=== PATIENT | female | born 1985 | race Two or more races ===

== ENCOUNTER → 2024-08-01 | Outpatient (CLI) | payer MEDICAID, SELFPAY ==
--- NOTE | 2024-08-01 14:30 | XR_ITS ---
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
== END | disposition home or self-care (01) ==
PROVIDERS: PCP Nurse Practitioner Family; Referring Provider Nurse Practitioner Family; Visit Provider Nurse Practitioner Family
DX: N85.9 Noninflammatory disorder of uterus, unspecified (principal); R10.9 Unspecified abdominal pain
CPT/HCPCS: 76830

== ENCOUNTER 2024-08-22 14:16 | Outpatient (AMB) | payer MEDICAID, SELFPAY ==
[2024-08-22 14:43] VITALS: BP 131/86; PULSE 80; RESP 18; TEMP 36.2; O2SAT 96; BMI 35.8
--- NOTE | 2024-08-22 14:43 | AMB.GYNCLNOT ---
Vital Signs 08/22/24 14:43 Height 1.52 m Height Method Stated Weight 82.27 kg Weight Measurement Method Standing Scale BMI 35.8 BP 131/86 H Blood Pressure Source Automatic Cuff Blood Pressure Location Left Upper Arm Position Sitting Respiration 18 Pulse 80 Pulse Source Monitor Temp 97.2 F Temp Source Oral Pulse Oximetry (%) 96 Oxygen Delivery Method Room Air Allergies/Home Meds Allergies & Medications Allergies No Known Allergies Allergy (Verified 08/22/24 14:45) Medication Reconciliation levothyroxine 112 mcg tablet 112 mcg PO QAM 01/31/24 [History Confirmed 08/22/24] Intake Visit Data Collection New Patient or Established: Established Patient (seen at [facility] within 3 years) Reason for Visit:: left side pain Seen by Clinical Staff ONLY (RN/MA): No Skip Pit Worker Required: No Do You Feel Safe at Home: Yes Authorities Contacted: N/A PCP or OBGYN visit in last 3 months: Yes Hx Now: No Are you currently on any form of Control: No Last menstrual period: 08/05/24 Pain Present Currently: No Pain Scale Used: Conroy-Haskins/Numerical Pain scale:: 0 Smoking Status Smoking Status: Never smoker Client Care Consultant history Client Care Consultant History Menstrual regularity: regular Flow: normal Monthly: Yes Age at menarche: 12 Menopausal: No Currently sexually active: Yes Questionnaires Covid-19 Vaccine Questionnaire Has patient been vacinated for Covid-19 Have you been vacinated for Covid-19: Yes PHQ-9 PHQ-2 Over the last 2 weeks, how often have you been bothered by any of the following problems? 1. Little interest or pleasure in doing things: not at all 2. Feeling down, depressed, or hopeless: not at all Total score: 0 PHQ-9 3. Trouble falling or staying asleep, or sleeping too much: Not at all 4. Feeling tired or having little energy: Not at all 5. Poor appetite or overeating: Not at all 6. Feeling bad about yourself - or that you are a failure or have let yourself or your family down: Not at all 7. Trouble concentrating on things, such as reading the newspaper or watching television: Not at all 8. Moving or speaking so slowly that other people could have noticed? - Or the opposite - being so fidgety or restless that you have been moving around a lot more than usual: not at all 9. Thoughts that you would be better off or of hurting yourself in some way: Not at all Total score: 0 If you checked off any problems, how difficult have these problems made it for you to do your work, take care of things at home, or get along with other people?: not difficult at all Source: Developed by Drs. Dale Escalera, Amanda Gutierrez, Lorenzo Pham and colleagues, with an educational leo from [employer]. Depression screen completed yes Social History Living Situation History Marital Status: Lives With: Family Housing: House Tobacco History Smoking Status: Never smoker Alcohol History Alcohol Intake: Never Domestic Abuse History Do You Feel Safe at Home: Yes Past Medical History Past Medical History Have you ever been diagnosed with any of the following: Cardiology Problems Congestive Heart Failure: No Respiratory Problems Chronic Obstructive Pulmonary Disease (COPD): No Asthma: No Genital/Urinary Problems Renal Disease: No Endocrine Problems Diabetes Mellitus Type 1: No Diabetes Mellitus Type 2: No Blood Problems Sickle Cell Disease: No History of Present Illness HPI Narrative This is a 39-year-old Nolla with complaints of left sided pain for 2 months. Patient was referred by another provider for ultrasound results. Patient reports her period started when she was 13 years old. Since menarche menses have been irregular. Sometimes she skips a month or 2 between regular cycles. Her last period August 05, 2024 and that lasted for 6 days lighten flow. Patient states that she had previously seen a provider for irregular cycles and was treated with control pills. She reports that with control pills her periods were every month but once she stopped the pills her periods went back to regular again. Her and her partner would like a . She had a lap celena in May that was uncomplicated. She denies any history of past medical problems. She denies any social habits including smoking. She denies any complaints of vaginitis. The pain on her left side comes and goes. It feels pokey sometimes and sometimes could like cramping. Pain is improved with Tylenol. Review of Systems Review of Systems Systems Reviewed: All systems reviewed, normal except as documented Exam Narrative Physical exam: abdomen soft, tender to palpation left lower quad, no rebound General Limitations: no limitations General Appearance: alert, in no apparent distress, comfortable, cooperative, healthy appearing, well developed and well groomed Head Head exam: atraumatic, normocephalic and normal inspection Resp Respiratory exam: Present normal lung sounds bilaterally Card Cardiovascular exam: Present regular rate, normal rhythm and normal heart sounds Abdominal Abdominal exam: Present soft and normal bowel sounds Extremities Extremities exam: Present normal inspection and full ROM Psych Psychiatric exam: Present normal affect and normal mood Results Objective Imagin/1 transvaginal pelvic sono: uterus 8.4 cm. no uterine mass. endometrial stripe 0.9. both ovaries normal size. there is a 7cm [id number] vascular mass on right adnexa Assessment & Plan Diagnosis / Problem List (1) Pain in female pelvis: (2) Unspecified ovarian cyst, right side: Status: Acute Plan consult with CLERICAL WAREHOUSE WORKER, order CA-125, schedule with OB for results, discuss results with patient, continue Ibuprophen or tylenol as needed for discomfort Additional Plan Follow Up: 1 Week (f/u right adnexa mass) Office Procedures OB Clinic LOC & Office Proc's Nursing/Assessment Patient Status: Established Patient OB Clinic Nursing Assessment: BP Monitoring, Medication Reconciliation, Update PMH in EMR and Vital Signs OB Clinic Coordination of Care: Consent,records obtained, informed consent, Education Simp Pt/Fam, Lab and Imaging orders and Staff clarify orders Special Needs: Heart tones Established Patient Charge Established Patient Point Assignment: 120 Established Patient Point Charge: EP Level 4 (120-155)
== END 2024-08-22 14:55 | disposition home or self-care (01) ==
LOC: HODSOBC 14:16
PROVIDERS: PCP Advanced Practice Midwife; Referring Provider Advanced Practice Midwife; Supervising Provider Obstetrics & Gynecology; Visit Provider Advanced Practice Midwife
DX: N83.201 Unspecified ovarian cyst, right side (principal); Z90.49 Acquired absence of other specified parts of digestive tract
CPT/HCPCS: 99214; G0463

== ENCOUNTER 2024-09-12 14:27 | Outpatient (AMB) | payer MEDICAID, SELFPAY ==
--- NOTE | 2024-09-12 14:35 | AMB.GYNCLNOT ---
Vital Signs 09/12/24 14:38 Height 1.52 m Height Method Stated Weight 83.915 kg Weight Measurement Method Standing Scale BMI 36.3 BP 150/85 H Blood Pressure Source Automatic Cuff Blood Pressure Location Left Upper Arm Position Sitting Respiration 18 Pulse 81 Pulse Source Monitor Temp 97.2 F Temp Source Oral Pulse Oximetry (%) 97 Oxygen Delivery Method Room Air Allergies/Home Meds Allergies & Medications Allergies No Known Allergies Allergy (Verified 09/12/24 14:39) Medication Reconciliation levothyroxine 112 mcg tablet 112 mcg PO QAM 01/31/24 [History Confirmed 09/12/24] Intake Visit Data Collection New Patient or Established: Established Patient (seen at [facility] within 3 years) Reason for Visit:: Pelvic pain, abnormal ultrasound results showing right adnexal mass Seen by Clinical Staff ONLY (RN/MA): No Field Sampling Technician Required: Yes Field Sampling Technician's name/title: CARIDAD PETE / ELECTRONIC EQUIPMENT REPAIRER Do You Feel Safe at Home: Yes Authorities Contacted: N/A PCP or OBGYN visit in last 3 months: Yes Date of Last PCP or OBGYN visit: 08/22/24 Hx Now: No Are you currently on any form of Control: No Pain Present Currently: No Pain Scale Used: Conroy-Haskins/Numerical Pain scale:: 0 Smoking Status Smoking Status: Never smoker Eating Disorder Psychologist history Eating Disorder Psychologist History Menstrual regularity: regular Flow: normal Monthly: Yes How many days does period last: 5 Age at menarche: 12 Menopausal: No Currently sexually active: Yes CHIPPER FEEDER: Past Medical History Past Medical History: No Hx Cardiac Disorders, No Hx Renal Disease, No Hx Diabetes Mellitus Type 1 and No Hx Diabetes Mellitus Type 2 Questionnaires Covid-19 Vaccine Questionnaire Has patient been vacinated for Covid-19 Have you been vacinated for Covid-19: Yes PHQ-9 PHQ-2 Over the last 2 weeks, how often have you been bothered by any of the following problems? 1. Little interest or pleasure in doing things: not at all 2. Feeling down, depressed, or hopeless: not at all Total score: 0 PHQ-9 3. Trouble falling or staying asleep, or sleeping too much: Not at all 4. Feeling tired or having little energy: Not at all 5. Poor appetite or overeating: Not at all 6. Feeling bad about yourself - or that you are a failure or have let yourself or your family down: Not at all 7. Trouble concentrating on things, such as reading the newspaper or watching television: Not at all 8. Moving or speaking so slowly that other people could have noticed? - Or the opposite - being so fidgety or restless that you have been moving around a lot more than usual: not at all 9. Thoughts that you would be better off or of hurting yourself in some way: Not at all Total score: 0 If you checked off any problems, how difficult have these problems made it for you to do your work, take care of things at home, or get along with other people?: not difficult at all Source: Developed by Drs. Dale Escalera, Amanda Gutierrez, Lorenzo Pham and colleagues, with an educational leo from [employer]. Depression screen completed yes Social History Living Situation History Lives With: Family Housing: House Tobacco History Smoking Status: Never smoker Alcohol History Alcohol Intake: Never Domestic Abuse History Do You Feel Safe at Home: Yes History of Present Illness HPI Narrative Farida Singh presents for follow-up regarding pelvic pain and abnormal ultrasound results. She was initially seen by another provider in the office on referral from her PCP. The patient reports experiencing pelvic pain, which is intermittent in nature. The pain is primarily localized to the left side. The frequency and severity of the pain are not consistently present every day. The patient does not report any significant impact on her daily activities that would necessitate urgent intervention. An ultrasound performed on August 01, 2024, revealed a right adnexal mass measuring 7.4 x 4 x 4.4 cm, which is vascular. The patient also has a 27 mm cyst on the left ovary. Despite the presence of these findings, the patient's CA-125 level was 12.0, which is considered negative for her age, indicating that the cyst is likely benign. Review of Systems Genitourinary: Positive for pelvic pain. Exam General General Appearance: alert, in no apparent distress and healthy appearing Head Head exam: atraumatic Neck Neck exam: Present normal inspection and trachea midline Chest Chest inspection: Present normal inspection and symmetric chest wall rise External exam: Present normal external exam; Absent tenderness Neuro Neurological exam: Present oriented X3 Psych Psychiatric exam: Present normal affect and normal mood Results Objective Laboratory: - CA125: 12.0 (negative for patient's age) Imaging: - Date: 08/01/2024 - Ultrasound: - Uterus: 8.4 cm, endometrial stripe 0.9 cm - Right ovary: 2.1 cm with arterial flow - Right adnexal mass: 7.4 x 4 x 4.4 cm, vascular - Left ovary: 3.3 cm with arterial flow, 27 mm cyst Office Procedures OB Clinic LOC & Office Proc's Nursing/Assessment Patient Status: Established Patient OB Clinic Nursing Assessment: BP Monitoring, Medication Reconciliation, Update PMH in EMR and Vital Signs OB Clinic Coordination of Care: Consent,records obtained, informed consent, Education Simp Pt/Fam, Results/Orders obtained and Staff clarify orders Established Patient Charge Established Patient Point Assignment: 80 Established Patient Point Charge: EP Level 3 (80-115) Assessment & Plan Diagnosis / Problem List (1) Unspecified ovarian cyst, right side: Status: Acute (2) Ovarian mass, right: Status: Acute Plan Farida Singh presents with pelvic pain and abnormal ultrasound results showing a large right adnexal mass measuring 7.4 x 4 x 4.4 cm. Right adnexal mass Assessment: Patient has a right adnexal mass measuring 7.4 x 4 x 4.4 cm, discovered on ultrasound performed on 08/01/2024. The mass is vascular. CA-125 level is 12.0, which is negative for the patient's age, suggesting a benign etiology. Patient reports intermittent pelvic pain, predominantly on the left side. The size of the mass (>7 cm) typically warrants surgical intervention. A small left ovarian cyst measuring 27 mm was also noted on ultrasound. Plan: - Repeat pelvic ultrasound in early October 2024 (approximately 2 months from previous study) to assess for changes in size of the right adnexal mass - Follow-up appointment after repeat ultrasound to review results and determine need for surgical intervention - If mass is decreasing in size, continue conservative management - If mass is stable or increasing in size, proceed with surgical removal - Discussed with patient that urgent surgery would be indicated if pain becomes severe or constant
[2024-09-12 14:38] VITALS: BP 150/85; PULSE 81; RESP 18; TEMP 36.2; O2SAT 97; BMI 36.3
== END 2024-09-12 14:59 | disposition home or self-care (01) ==
LOC: HODSOBC 14:27
PROVIDERS: PCP Obstetrics & Gynecology; Referring Provider Obstetrics & Gynecology; Supervising Provider Obstetrics & Gynecology; Visit Provider Obstetrics & Gynecology
DX: N83.201 Unspecified ovarian cyst, right side (principal); N83.8 Other noninflammatory disorders of ovary, fallopian tube and broad ligament
CPT/HCPCS: 99213; G0463

== ENCOUNTER 2024-10-10 14:52 | Outpatient (AMB) | payer MEDICAID, SELFPAY ==
[2024-10-10 15:47] VITALS: BP 120/82; PULSE 72; RESP 17; TEMP 36.7; O2SAT 97; BMI 35.7
--- NOTE | 2024-10-10 15:47 | GYNCLNT_ITS ---
Vital Signs 10/10/24 15:47 Height 1.52 m Height Method Stated Weight 82.554 kg Weight Measurement Method Standing Scale BMI 35.7 BP 120/82 Blood Pressure Source Automatic Cuff Blood Pressure Location Right Upper Arm Position Sitting Respiration 17 Pulse 72 Pulse Source Monitor Temp 98.0 F Temp Source Temporal Artery Scan Pulse Oximetry (%) 97 Oxygen Delivery Method Room Air Allergies/Home Meds Allergies & Medications Allergies No Known Allergies Allergy (Verified 10/10/24 15:48) Medication Reconciliation levothyroxine 112 mcg tablet 112 mcg PO QAM 01/31/24 [History Confirmed 10/10] Intake Visit Data Collection New Patient or Established: Established Patient (seen at [facility] within 3 years) Reason for Visit:: FOLLOW UP Seen by Clinical Staff ONLY (RN/MA): Yes Language: Director Of Automation Required: Yes Director Of Automation's name/title: CARIDAD PETE NURSE COMPANION Do You Feel Safe at Home: Yes Authorities Contacted: N/A PCP or OBGYN visit in last 3 months: Yes Date of Last PCP or OBGYN visit: 09/12/24 Hx Now: No Are you currently on any form of Control: No Last menstrual period: 09/04/24 Pain Present Currently: No Pain Scale Used: Conroy-Haskins/Numerical Pain scale:: 0 Smoking Status Smoking Status: Never smoker DRAMATIC AGENT: Past Medical History Past Medical History: No Hx Cardiac Disorders, No Hx Renal Disease, No Hx Diabetes Mellitus Type 1 and No Hx Diabetes Mellitus Type 2 Questionnaires Covid-19 Vaccine Questionnaire Has patient been vacinated for Covid-19 Have you been vacinated for Covid-19: No PHQ-9 PHQ-2 Over the last 2 weeks, how often have you been bothered by any of the following problems? 1. Little interest or pleasure in doing things: not at all 2. Feeling down, depressed, or hopeless: not at all Total score: 0 PHQ-9 3. Trouble falling or staying asleep, or sleeping too much: Not at all 4. Feeling tired or having little energy: Not at all 5. Poor appetite or overeating: Not at all 6. Feeling bad about yourself - or that you are a failure or have let yourself or your family down: Not at all 7. Trouble concentrating on things, such as reading the newspaper or watching television: Not at all 8. Moving or speaking so slowly that other people could have noticed? - Or the opposite - being so fidgety or restless that you have been moving around a lot more than usual: not at all 9. Thoughts that you would be better off or of hurting yourself in some way: Not at all Total score: 0 If you checked off any problems, how difficult have these problems made it for you to do your work, take care of things at home, or get along with other people?: not difficult at all Source: Developed by Drs. Dale Escalera, Amanda Gutierrez, Lorenzo Pham and colleagues, with an educational leo from [employer]. Depression screen completed yes Social History Living Situation History Lives With: Family Housing: House Tobacco History Smoking Status: Never smoker Alcohol History Alcohol Intake: Never Domestic Abuse History Do You Feel Safe at Home: Yes History of Present Illness HPI Narrative Patient reports an improvement in her pain since the last appointment on September 12, 2024. She expresses concern about her ability to conceive, wondering if the presence of the cysts is affecting her fertility. No other symptoms or changes in health status are reported. She is a 39-year-old female presenting for follow-up of a right adnexal mass and left ovarian cyst previously identified on ultrasound. The right adnexal mass measures 7.4 x 4 x 4.4 cm with vascularity, and the left ovarian cyst measures 27 mm. Patient reports struggling to get . Review of systems is positive for difficulty getting . Exam General General Appearance: alert, in no apparent distress and healthy appearing Head Head exam: atraumatic Neck Neck exam: Present normal inspection and trachea midline Chest Chest inspection: Present normal inspection and symmetric chest wall rise External exam: Present normal external exam; Absent tenderness Neuro Neurological exam: Present oriented X3 Psych Psychiatric exam: Present normal affect and normal mood Results Objective Laboratory: Diagnostic Test Results and Labs: - Pelvic ultrasound (08-01-2024): Right adnexal mass measuring 7.4 x 4 x 4.4 cm with vascularity. Left ovarian cyst measuring 27 mm. - CA125: 12 Office Procedures OB Clinic LOC & Office Proc's Nursing/Assessment Patient Status: Established Patient OB Clinic Nursing Assessment: Medication Reconciliation, Update PMH in EMR and Vital Signs OB Clinic Coordination of Care: Complex Care and Chronic Disease 1-5, Consent,records obtained, informed consent, Education Simp Pt/Fam and Lab and Imaging orders Established Patient Charge Established Patient Point Assignment: 90 Established Patient Point Charge: EP Level 3 (80-115) Assessment & Plan Diagnosis / Problem List (1) Unspecified ovarian cyst, right side: Status: Acute (2) Ovarian mass, right: Status: Acute Plan Right adnexal mass and left ovarian cyst Plan: - Order stat repeat pelvic ultrasound to assess for interval changes in cyst size. - Review ultrasound results to determine necessity for surgical intervention. - Follow up with patient to discuss ultrasound findings and treatment plan. - Provided patient education on the relationship between ovarian cysts, age, and fertility.
== END 2024-10-10 15:35 | disposition home or self-care (01) ==
LOC: HODSOBC 14:52
PROVIDERS: PCP Obstetrics & Gynecology; Referring Provider Obstetrics & Gynecology; Supervising Provider Obstetrics & Gynecology; Visit Provider Obstetrics & Gynecology
DX: N83.202 Unspecified ovarian cyst, left side (principal); N83.8 Other noninflammatory disorders of ovary, fallopian tube and broad ligament
CPT/HCPCS: 99213; G0463

== ENCOUNTER → 2024-10-20 | Outpatient (CLI) | payer MEDICAID, SELFPAY ==
--- NOTE | 2024-10-20 16:32 | XR_ITS ---
Examination: Transvaginal ultrasound of the pelvis, complete Technique: Transvaginal sonographic images pelvis performed using ramos scale imaging Exam date and time: October 20, 2024 at 1639 hours COMPARISON: 2024 INDICATIONS: Intermittent right-sided pelvic pain beginning 2 months ago FINDINGS: Uterus 8.2 cm endometrial stripe 0.7 cm No uterine mass or intrauterine gestation Right ovary 7.2 x 3.9 x 3.5 cm with increased vascularity, arterial flow Left ovary 2.5 cm lateral to 20 mm cyst IMPRESSION: Enlarged vascular right ovary 7.2 x 3.9 x 3.5 cm, differential would include ovarian tumor Recommend MRI pelvis follow-up, pre and postcontrast.
== END | disposition home or self-care (01) ==
LOC: CDIM 16:26
PROVIDERS: PCP Nurse Practitioner Family; Referring Provider Obstetrics & Gynecology; Visit Provider Obstetrics & Gynecology
DX: N83.8 Other noninflammatory disorders of ovary, fallopian tube and broad ligament (principal)
CPT/HCPCS: 76830

== ENCOUNTER → 2024-10-23 | Outpatient (CLI) | payer MEDICAID, SELFPAY ==
--- NOTE | 2024-10-23 11:01 | XR_ITS ---
Examination: Pelvic ultrasound, transabdominal, complete Technique: Transabdominal ultrasound of the pelvis performed using grayscale imaging Date and time of exam: October 23, 2024 1106 hours INDICATIONS: Transvaginal pelvic sonogram October 20, 2024 and large vascular right ovary 7.2 x 3.9 x 3.5 cm FINDINGS: Uterus 9.5 cm endometrial stripe 0.8 cm No uterine mass or intrauterine gestation Right ovary 7.9 x 4.5 x 4.7 cm arterial flow 5.5 x 4.2 x 4.0 cm solid right ovarian mass with vascularity Left ovary 3.6 x 3.2 x 3.2 cm arterial flow 27 mm cyst IMPRESSION: Vascular right ovarian solid mass 5.5 x 4.2 x 4.0 cm most consistent with ovarian tumor Recommend MRI pelvis follow-up pre and postcontrast
== END | disposition home or self-care (01) ==
LOC: CDIM 10:49
PROVIDERS: PCP Nurse Practitioner Family; Referring Provider Obstetrics & Gynecology; Visit Provider Obstetrics & Gynecology
DX: N83.201 Unspecified ovarian cyst, right side (principal)
CPT/HCPCS: 76856

== ENCOUNTER 2024-11-07 13:15 | Outpatient (AMB) | payer MEDICAID, SELFPAY ==
[2024-11-07 13:27] VITALS: BP 120/81; PULSE 76; RESP 17; TEMP 36.5; O2SAT 96; BMI 35.7
--- NOTE | 2024-11-07 13:27 | AMB.GYNCLNOT ---
Vital Signs 11/07/24 13:27 Height 1.52 m Height Method Stated Weight 82.667 kg Weight Measurement Method Standing Scale BMI 35.7 BP 120/81 Blood Pressure Source Automatic Cuff Blood Pressure Location Right Upper Arm Position Sitting Respiration 17 Pulse 76 Pulse Source Monitor Temp 97.7 F Temp Source Temporal Artery Scan Pulse Oximetry (%) 96 Oxygen Delivery Method Room Air Allergies/Home Meds Allergies & Medications Allergies No Known Allergies Allergy (Verified 10/10/24 15:48) Medication Reconciliation levothyroxine 112 mcg tablet 112 mcg PO QAM 01/31/24 [History Confirmed 11/07/24] Intake Visit Data Collection New Patient or Established: Established Patient (seen at [facility] within 3 years) Reason for Visit:: US RESULTS Seen by Clinical Staff ONLY (RN/MA): No Fast Foods Worker Required: Yes Fast Foods Worker's name/title: EVELIA ARAIZA Do You Feel Safe at Home: Yes Authorities Contacted: N/A PCP or OBGYN visit in last 3 months: Yes Hx Now: No Are you currently on any form of Control: No Last menstrual period: 11/05/24 Pain Present Currently: No Pain Scale Used: Conroy-Haskins/Numerical Pain scale:: 0 Smoking Status Smoking Status: Never smoker 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 1. Little interest or pleasure in doing things: not at all 2. Feeling down, depressed, or hopeless: not at all Total score: 0 PHQ-9 3. Trouble falling or staying asleep, or sleeping too much: Not at all 4. Feeling tired or having little energy: Not at all 5. Poor appetite or overeating: Not at all 6. Feeling bad about yourself - or that you are a failure or have let yourself or your family down: Not at all 7. Trouble concentrating on things, such as reading the newspaper or watching television: Not at all 8. Moving or speaking so slowly that other people could have noticed? - Or the opposite - being so fidgety or restless that you have been moving around a lot more than usual: not at all 9. Thoughts that you would be better off or of hurting yourself in some way: Not at all Total score: 0 If you checked off any problems, how difficult have these problems made it for you to do your work, take care of things at home, or get along with other people?: not difficult at all Source: Developed by Drs. Dale Escalera, Amanda Gutierrez, Lorenzo Pham and colleagues, with an educational leo from [employer] Depression screen completed yes Social History Living Situation History Marital Status: Lives With: Family Housing: House Tobacco History Smoking Status: Never smoker Second Hand Smoke Exposure: No Alcohol History Alcohol Intake: Never Domestic Abuse History Do You Feel Safe at Home: Yes History of Present Illness HPI Narrative Patient presents for review of pelvic ultrasound results following evaluation for an adnexal mass. She has a history of pancreatitis surgery 22 years ago and recent gallbladder surgery in May. Initial imaging on August 01, 2024, revealed a right adnexal mass measuring 7.4 x 4.0 x 4.4 cm. A repeat ultrasound on October 23, 2024, showed a decrease in size to 5.5 x 4.2 x 4.0 cm, described as a vascular right ovarian solid mass. The patient inquired if the mass would continue to decrease in size. Tumor markers were reported as negative. The patient does not report any specific symptoms related to the adnexal mass. She has a history of multiple surgeries, including a pancreatitis operation in [place] 22 years ago, which resulted in a large abdominal scar. She also mentions a recent gallbladder surgery in May, though the exact date is uncertain. Additionally, she reports having had surgery on her ankle, though the timing and reason for this procedure are not specified. Medical history includes pancreatitis, operated on 22 years ago. Surgical history includes pancreatitis surgery in [place] approximately 22 years ago, gallbladder surgery (date unspecified), and ankle surgery (possibly in May, year unspecified). - Pelvic ultrasound (08/01/2024): Right adnexal mass measuring 7.4 x 4.0 x 4.4 cm - Pelvic ultrasound (10/23/2024): Vascular right ovarian solid mass measuring 5.5 x 4.2 x 4.0 cm - Tumor markers: Negative Exam General General Appearance: alert, in no apparent distress and healthy appearing Head Head exam: atraumatic Neck Neck exam: Present normal inspection and trachea midline Chest Chest inspection: Present normal inspection and symmetric chest wall rise External exam: Present normal external exam; Absent tenderness Neuro Neurological exam: Present oriented X3 Psych Psychiatric exam: Present normal affect and normal mood Office Procedures OB Clinic LOC & Office Proc's Nursing/Assessment Patient Status: Established Patient OB Clinic Nursing Assessment: Medication Reconciliation, Update PMH in EMR and Vital Signs OB Clinic Coordination of Care: Complex Care and Chronic Disease 1-5, Consent,records obtained, informed consent, Education Simp Pt/Fam, Results/Orders obtained and Staff clarify orders Established Patient Charge Established Patient Point Assignment: 90 Established Patient Point Charge: EP Level 3 (80-115) Assessment & Plan Diagnosis / Problem List (1) Unspecified ovarian cyst, right side: Status: Acute (2) Ovarian mass, right: Status: Acute Plan Right adnexal mass: - Right ovarian solid mass, initially measuring 7.4 x 4.0 x 4.4 cm on 08/01/2024. - Repeat ultrasound on 10/23/2024 showed decrease in size to 5.5 x 4.2 x 4.0 cm. - Mass described as vascular. - Tumor markers negative, suggesting low likelihood of malignancy. - Mass remains significant despite reduction in size. Plan: - Discussed management options: 1. Laparoscopic surgery to remove the cyst 2. Continued monitoring with ultrasound every 3 months - Patient to consider options and inform clinic of decision - If choosing continued monitoring, schedule follow-up ultrasound in 3 months
== END 2024-11-07 14:13 | disposition home or self-care (01) ==
LOC: HODSOBC 13:15
PROVIDERS: PCP Nurse Practitioner Family; Referring Provider Nurse Practitioner Family; Supervising Provider Obstetrics & Gynecology; Visit Provider Obstetrics & Gynecology
DX: N83.201 Unspecified ovarian cyst, right side (principal)
CPT/HCPCS: 99213; G0463

== ENCOUNTER 2025-01-24 08:43 | Outpatient (AMB) | payer MEDICAID, SELFPAY ==
[2025-01-24 08:54] VITALS: BP 156/96; PULSE 97; RESP 18; TEMP 36.6; O2SAT 97; BMI 34.8
--- NOTE | 2025-01-24 08:54 | AMB.GYNCLNOT ---
Vital Signs 01/24/25 08:54 Height 1.52 m Height Method Measured Weight 80.456 kg Weight Measurement Method Standing Scale BMI 34.8 BP 156/96 H Blood Pressure Source Automatic Cuff Blood Pressure Location Right Upper Arm Position Sitting Respiration 18 Pulse 97 Pulse Source Monitor Temp 98 F Temp Source Temporal Artery Scan Pulse Oximetry (%) 97 Oxygen Delivery Method Room Air Allergies/Home Meds Allergies & Medications Allergies No Known Allergies Allergy (Verified 01/19/25 07:56) Intake Visit Data Collection New Patient or Established: Established Patient (seen at [facility] within 3 years) Reason for Visit:: PREOP/PELVIC PAIN Hotel Maintenance Technician's name/title: EVELIA ARAIZA Do You Feel Safe at Home: Yes Authorities Contacted: N/A PCP or OBGYN visit in last 3 months: Yes Date of Last PCP or OBGYN visit: 01/19/25 Hx Now: No Are you currently on any form of Control: No Last menstrual period: 01/17/25 Pain Present Currently: Yes Pain Location: Groin Pain scale:: 8 Smoking Status Smoking Status: Never smoker 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 1. Little interest or pleasure in doing things: not at all PHQ-9 8. Moving or speaking so slowly that other people could have noticed? - Or the opposite - being so fidgety or restless that you have been moving around a lot more than usual: not at all Source: Developed by Drs. Dale Escalera, Amanda Gutierrez, Lorenzo Pham and colleagues, with an educational leo from [employer]. Social History Living Situation History Lives With: Family Housing: House Tobacco History Smoking Status: Never smoker Second Hand Smoke Exposure: No Alcohol History Alcohol Intake: Never Domestic Abuse History Do You Feel Safe at Home: Yes History of Present Illness HPI Narrative Farida Singh presents for a preoperative visit for a scheduled laparoscopic ovarian cystectomy to remove a right ovarian cyst. The patient was initially scheduled for surgery tomorrow but reports being informed of a date change to January 27 due to having the flu. The patient's primary concern is the right ovarian cyst, which is planned to be removed through small incisions. It is noted that the cyst may be causing pressure pain. The clinician mentions that both ovaries will be examined during the procedure, and any cysts found will be removed. Additionally, it is mentioned that the patient is trying to conceive. The clinician indicates that after the cyst removal and recovery, they can initiate treatment for fertility. ROS: General: Positive for flu-like symptoms. Exam General General Appearance: alert, in no apparent distress and healthy appearing Head Head exam: atraumatic Neck Neck exam: Present normal inspection and trachea midline Chest Chest inspection: Present normal inspection and symmetric chest wall rise External exam: Present normal external exam; Absent tenderness Neuro Neurological exam: Present oriented X3 Psych Psychiatric exam: Present normal affect and normal mood Office Procedures OBC Clinic LOC & Office Proc's Nursing/Assessment Patient Status: Established Patient OB Clinic Nursing Assessment: Medication Reconciliation, Update PMH in EMR and Vital Signs OB Clinic Coordination of Care: Complex Care and Chronic Disease 1-5, Education Complex Pt/Fam, Consent,records obtained, informed consent, Lab and Imaging orders and Staff clarify orders Established Patient Charge Established Patient Point Assignment: 105 Established Patient Point Charge: EP Level 3 (80-115) Assessment & Plan Diagnosis / Problem List (1) Unspecified ovarian cyst, right side: Status: Acute (2) Ovarian mass, right: Status: Acute Plan Right Ovarian Cyst: - Patient scheduled for laparoscopic ovarian cystectomy for right ovarian cyst. - Cysts possibly present on both sides causing pressure pain. - Patient is trying to conceive. Plan: - Perform laparoscopic ovarian cystectomy: ? Remove right ovarian cyst ? Inspect both ovaries and remove any additional cysts found - Discuss fertility treatment options after recovery from surgery. - Follow up post-operatively to assess recovery and plan next steps for fertility treatment.
== END 2025-01-24 09:45 | disposition home or self-care (01) ==
LOC: HODSOBC 08:43
PROVIDERS: Supervising Provider Obstetrics & Gynecology; Visit Provider Obstetrics & Gynecology
DX: N83.201 Unspecified ovarian cyst, right side (principal)
CPT/HCPCS: 99213; G0463

== ENCOUNTER 2025-02-01 07:27 | Day surgery (SDC) | payer MEDICAID, SELFPAY ==
[2025-01-19 07:56] VITALS: BMI 34.0
[2025-01-19 09:45] LABS: Basophils # (Auto) 0.1 Thou/mm3 (0.0-0.2); Basophils % (Auto) 1 % (0-2.5); Eosinophils # (Auto) 0.1 Thou/mm3 (0.0-0.5); Eosinophils % (Auto) 1 % (0-10); Hematocrit 41.8 % (36.0-46.0); Hemoglobin 13.9 g/dL (12.0-16.0); Immature Granulocytes Auto 0.03 Thou/mm3 (0.00-0.00); Lymphocytes # (Auto) 1.9 Thou/mm3 (1.0-4.8); Lymphocytes % (Auto) 23 % (10-50); Mean Corpuscular HGB Conc 33.3 g/dl (31.0-37.0); Mean Corpuscular Hemoglobin 28.8 pg (25.0-35.0); Mean Corpuscular Volume 87 fL (80-100); Monocytes # (Auto) 0.5 Thou/mm3 (0.0-0.8); Monocytes % (Auto) 6 % (0-12); Neutrophils # (Auto) 5.6 Thou/mm3 (1.8-7.7); Neutrophils % (Auto) 69 % (37-80); Nucleated Red Blood Cell # 0.00 Thou/mm3 (0.00-0.00); Nucleated Red Blood Cell % 0 /100 WBC (0); Platelet Count 272 Thou/mm3 (140-440); RDW Standard Deviation 38.7 fL (36.4-46.3); Red Blood Count 4.82 Miln/mm3 (4.00-5.20); White Blood Count 8.1 Thou/mm3 (3.6-11.0)
[2025-01-19 09:51] LABS: HCG,Qualitative Serum Negative
[2025-01-19 09:56] LABS: Alanine Aminotransferase 14 U/L (10-49); Albumin, Serum 4.5 gm/dL (3.5-5.0); Albumin/Globulin Ratio 1.5 (1.2-2.2); Alkaline Phosphatase 83 U/L (46-116); Anion Gap 7 (7-16); Aspartate Amino Transferase 18 U/L (0-34); BUN/Creatinine Ratio 16 Ratio (12-20); Bilirubin,Total 0.4 mg/dL (0.3-1.2); Blood Urea Nitrogen 13 mg/dL (9-23); Calcium 9.7 mg/dL (8.3-10.6); Calcium (Corrected) 9.7 mg/dL (8.5-10.1); Carbon Dioxide 29.4 mMol/L (20.0-31.0); Chloride 104 mMol/L (98-107); Creatinine (Component) 0.8 mg/dL (0.6-1.3); Estimated Creatinine Clearance 91.4 mL/min (>60); Globulin 3.1 gm/dL (2.3-3.5); Glucose 102 mg/dL (74-106); Osmolality,Calculated 279 (275-295); Potassium 4.5 mMol/L (3.4-5.1); Sodium 140 mMol/L (136-145); Total Protein 7.6 gm/dL (5.7-8.2); eGFR > 60 See Note
--- NOTE | 2025-01-31 14:28 | SUR.PREOP ---
Labs from 01/[address] Perry and Dr Aj. Hcg needs to be repeated tomorrow on arrival.
--- NOTE | 2025-01-31 14:47 | SUR.PREOP ---
Confirmed with pt to come in tomorrow at 0730 for surgery.
[2025-02-01] VITALS (8 sets, daily range): BP systolic 125–163; BP diastolic 72–97; PULSE 55–91; RESP 14–20; TEMP 36.1–36.7; O2SAT 97–100; BMI 33.4
[2025-02-01 08:03] LABS: HCG Qualitative,Urine Negative
--- NOTE | 2025-02-01 11:22 | ESOP_ITS ---
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 The patient was brought to the operating room and identified using two patient identifiers. She was placed in the dorsal lithotomy position. General anesthesia was induced, and the abdomen and perineum were prepped and draped in sterile fashion. A Smith catheter was placed for bladder decompression. Laparoscopic entry was performed at the umbilicus using a 5 mm trocar with direct Optiview visualization. Pneumoperitoneum was established and insufflated to 15 mmHg. Under direct visualization, two additional ports were placed: a 5 mm trocar in the left lower quadrant and a 10 mm trocar in the right lower quadrant. Upon entry, the right ovarian cyst was visualized and measured approximately 7?8 cm in diameter. The cyst was dissected completely off the ovarian cortex using a combination of sharp dissection and bipolar energy. Once free, it was placed in an Endo Catch pouch and removed intact through the right-sided 10 mm port. The left ovary was examined and noted to have a simple cyst. The cyst was punctured, drained, and then deroofed. The remaining ovarian tissue was inspected, and hemostasis was confirmed bilaterally. The abdominal cavity was irrigated, and all fluid was suctioned. No evidence of active bleeding or injury was noted. All instruments were withdrawn under direct visualization. The 10 mm port site on the right was closed using the Mulugeta- Altamirano device with 0 Vicryl to secure the fascia. The remaining port sites were closed using 4-0 Monocryl, and Dermabond was applied for skin closure. The patient tolerated the procedure well and was transferred to the recovery room in stable condition. All sponge, lap, and instrument counts were correct ?2. Specimen: other Estimated blood loss (ml): 20 Complications: none Surgical staff Operation Date: 02/01/25 09:30 <No data on this case meets the specified criteria> Diagnosis Discharge Diagnosis (1) Unspecified ovarian cyst, right side: Status: Acute (2) Ovarian mass, right: Status: Acute Problem List Completed Was Problem List Reviewed/Reconciled?: Yes
--- NOTE | 2025-02-01 11:26 | SUR.PHASEI ---
Pt. arrived to recovery via gurney, eyes closed, oral airway in place, VSS, lap sites x3 to abdomen, dermabond intact, no active bleeding or redness noted, lung sounds clear, equal expansion sheela., pt. receiving 4 liters 02 via [place], report Jose C LARIOS and Dr. Aj.
--- NOTE | 2025-02-01 12:44 | SUR.PHASEII ---
1244 Patient meets discharge criteria from recovery, awake and alert, breathing unlabored, vital signs stable, denies pain and nausea, voided in the restroom prior to discharge, able to dress herself into her clothing, discharge instructions given to patient and patients with the assistance of the hospital rn staffing Doris, patients signed discharge instructions, patient given all her belongings prior to discharge, transported via wheelchair and left in a private vehicle.
== END 2025-02-01 12:44 | disposition home or self-care (01) ==
PROVIDERS: Anesthesiology; PCP Nurse Practitioner Family; Referring Provider Obstetrics & Gynecology; Visit Provider Obstetrics & Gynecology
PROC: (CPT 58662; principal; 2025-02-01 09:30)
DX: N83.201 Unspecified ovarian cyst, right side (principal); N83.202 Unspecified ovarian cyst, left side
CPT/HCPCS: 58662; 36415; 80053; 81025; 84703; 85025; 86850; 86900; 86901; A4649; J0131; J0690; J1100; J2250; J2371; J2405; J2704; J2765; J3010; J3490

== ENCOUNTER 2025-02-13 14:45 | Outpatient (AMB) | payer MEDICAID, SELFPAY ==
[2025-02-13 15:20] VITALS: BP 134/88; PULSE 72; RESP 18; TEMP 36.2; O2SAT 98
--- NOTE | 2025-02-13 15:20 | GYNCLNT_ITS ---
Vital Signs 02/13/25 15:20 Weight 80.796 kg Weight Measurement Method Standing Scale BP 134/88 H Blood Pressure Source Automatic Cuff Blood Pressure Location Left Upper Arm Position Sitting Respiration 18 Pulse 72 Pulse Source Monitor Temp 97.2 F Temp Source Oral Pulse Oximetry (%) 98 Oxygen Delivery Method Room Air Allergies/Home Meds Allergies & Medications Allergies No Known Allergies Allergy (Verified 02/13/25 15:21) Medication Reconciliation levothyroxine 112 mcg tablet 112 mcg PO QAM 01/31/24 [History Confirmed 02/13/25] docusate sodium 100 mg capsule (Stool Softener) 100 mg PO QDAY 30 days #30 caps 02/01/25 [Rx Confirmed 02/13/25] letrozole 2.5 mg tablet 2.5 mg PO QDAY 5 days #5 tabs 02/13/25 [Rx] Intake Visit Data Collection New Patient or Established: Established Patient (seen at [facility] within 3 years) Reason for Visit:: SURGERY FOLLOW UP Seen by Clinical Staff ONLY (RN/MA): No Controls Technician Required: No Do You Feel Safe at Home: Yes Authorities Contacted: N/A PCP or OBGYN visit in last 3 months: Yes Date of Last PCP or OBGYN visit: 02/01/25 Hx Now: Yes Are you currently on any form of Control: No Pain Present Currently: No Pain Scale Used: Conroy-Haskins/Numerical Pain scale:: 0 Smoking Status Smoking Status: Never smoker 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 Menstrual regularity: regular Flow: normal Monthly: Yes How many days does period last: 4 Menopausal: No 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 1. Little interest or pleasure in doing things: not at all 2. Feeling down, depressed, or hopeless: not at all Total score: 0 PHQ-9 3. Trouble falling or staying asleep, or sleeping too much: Not at all 4. Feeling tired or having little energy: Not at all 5. Poor appetite or overeating: Not at all 6. Feeling bad about yourself - or that you are a failure or have let yourself or your family down: Not at all 7. Trouble concentrating on things, such as reading the newspaper or watching television: Not at all 8. Moving or speaking so slowly that other people could have noticed? - Or the opposite - being so fidgety or restless that you have been moving around a lot more than usual: not at all 9. Thoughts that you would be better off or of hurting yourself in some way: Not at all Total score: 0 If you checked off any problems, how difficult have these problems made it for you to do your work, take care of things at home, or get along with other people?: not difficult at all Source: Developed by Drs. Dale Escalera, Amanda Gutierrez, Lorenzo Pham and colleagues, with an educational leo from [employer]. Depression screen completed yes Social History Living Situation History Marital Status: Single Lives With: Family Housing: House Tobacco History Smoking Status: Never smoker Second Hand Smoke Exposure: No Alcohol History Alcohol Intake: Never Domestic Abuse History Do You Feel Safe at Home: Yes History of Present Illness HPI Narrative Farida Singh presents for post-operative follow-up approximately one month after bilateral ovarian cyst surgery and fertility consultation. She underwent surgical drainage of bilateral simple cysts, which were described as water- containing cysts without blood or other abnormal contents. The patient reports complete healing from the surgical sites without ongoing pain. She reports her last menstrual period occurred before the surgery, and she has not had a period since the operation. She has a history of bilateral ovarian cyst drainage procedure approximately one month prior to current visit, with simple cysts drained without complications. The patient expresses immediate desire to pursue and is ready to begin fertility treatment. ROS: Negative except as stated above, limited to CHANCELLOR and pertinent complaints. Exam General General Appearance: alert, in no apparent distress and healthy appearing Head Head exam: atraumatic Neck Neck exam: Present normal inspection and trachea midline Chest Chest inspection: Present normal inspection and symmetric chest wall rise External exam: Present normal external exam; Absent tenderness Neuro Neurological exam: Present oriented X3 Psych Psychiatric exam: Present normal affect and normal mood Office Procedures OBC Clinic LOC & Office Proc's Nursing/Assessment Patient Status: Established Patient OB Clinic Nursing Assessment: Medication Reconciliation, Update PMH in EMR and Vital Signs OB Clinic Coordination of Care: Consent,records obtained, informed consent, Education Simp Pt/Fam, Lab and Imaging orders, Results/Orders obtained and Staff clarify orders Established Patient Charge Established Patient Point Assignment: 80 Established Patient Point Charge: EP Level 3 (80-115) Assessment & Plan Diagnosis / Problem List (1) Infertility, anovulation: Status: Acute (2) Other specified postprocedural states: Status: Acute Plan Infertility: - Patient is ready to attempt conception following recent bilateral ovarian cyst drainage. - Simple cysts were drained bilaterally with complete resolution expected. - Patient has not had menstrual period since surgery. - Surgical healing appears complete with no ongoing pain. - This represents an optimal time to initiate ovulation induction therapy. Plan: - Prescribe ovulation induction medication to be started on cycle day 3 of next menstrual period. - Continue medication for 3 months. - Patient to obtain ovulation test kits from pharmacy to track ovulation. - Timed intercourse when ovulation test becomes positive. - Follow-up appointment in 2 months. - If no menstrual period occurs, patient instructed to call for further guidance. - Any spotting or single day bleeding counts as cycle day 1 for medication timing. - [facility] Post-operative bilateral ovarian cyst drainage: - Patient is approximately one month post bilateral ovarian cyst drainage. - Cysts were simple, water-containing cysts with no blood or abnormal contents. - Surgical sites have healed appropriately with no pain. - Surgical glue remains in place but can be removed. Plan: - Surgical glue may be peeled off during showering using washcloth. - No further surgical follow-up needed as healing is complete.
== END 2025-02-13 15:37 | disposition home or self-care (01) ==
LOC: HODSOBC 14:45
PROVIDERS: PCP Nurse Practitioner Family; Referring Provider Nurse Practitioner Family; Supervising Provider Obstetrics & Gynecology; Visit Provider Obstetrics & Gynecology
DX: Z48.816 Encounter for surgical aftercare following surgery on the genitourinary system (principal); N97.0 Female infertility associated with anovulation; Z87.42 Personal history of other diseases of the female genital tract; E03.9 Hypothyroidism, unspecified; Z79.3 Long term (current) use of hormonal contraceptives
CPT/HCPCS: 99213; G0463